=== PATIENT | male | born 1955 | race Caucasian/White ===

== ENCOUNTER → 2017-03-07 | Outpatient (CLI) | payer BC ==
[2016-01-19 11:40] VITALS: BP 139/74
[~2017-03-07] MED LIST: ASPI-630 PO; ATOR20TA PO; ESOM40CA PO; OMEG500C PO
--- NOTE | 2017-03-07 10:21 | RAD ---
MRI Lumbar Spine without contrast History: Low back pain with right leg radiculopathy Technique: Multiplanar, multi sequential noncontrast MR imaging was performed of the lumbar spine. Contrast: None Comparison: None Findings: Lumbar vertebral body stature is overall preserved, small Schmorl's nodes of visualized inferior thoracic levels and also at L1-2. There is mild nonspecific edema associated with small inferior L1 Schmorl's node. There is likely small hemangioma of L4 vertebral body superiorly. AP alignment is overall adequate. Conus terminates normally at the inferior aspect of L1. There is mild degenerative disc disease at L1-L2, L3-4, and L5-S1. There are posterior annular tears at L1-L2, L4-5, and L5-S1. L1-L2: Spinal canal and the neural foramina are adequate. L2-L3: This level was not included on the axial images. Neural foramina and spinal canal are adequate. L3-L4: There is moderate facet hypertrophic change. There is prominence of posterior epidural fat. Neural foramina and spinal canal are adequate. L4-L5: There is moderate facet hypertrophic change greater on right. There is prominence of posterior epidural fat and mild buckling of the ligamentum flavum. Neural foramina and spinal canal are adequate. L5-S1: Spinal canal and neural foramina are adequate. There is mild facet hypertrophic change. Impression: 1. There is no significant lumbar spinal stenosis or neural foramina compromise. There is multilevel mild degenerative disc disease. Electronically signed by: Dominick Hurst MD (03/07/2017 10:17 AM)
--- NOTE | 2017-03-07 12:10 | RAD ---
MR of the right knee HISTORY: Right anteromedial knee pain. Recurring Wahl cysts. History of arthroscopic surgery. FINDINGS: Blunting of the medial meniscus with a small size. Some of these changes may be postoperative but medial meniscal tear is still suspected. There is some hyperintense T2 signal at the undersurface. No evidence of a lateral meniscal tear. The anterior and posterior cruciate ligaments are intact. Mild fluid signal at the ligament compatible with a small ganglion. Posterior cruciate ligament intact. Medial collateral ligament is intact. Iliotibial band unremarkable. Fibular collateral ligament, biceps femoris tendon and popliteus tendon are intact. Extensor mechanism intact. Moderate joint effusion. No evidence of osteochondral loose body. [id number] medial compartment chondromalacia. At least moderate chondromalacia at the medial patella. Small chondral fissure at the medial femoral trochlea, full thickness, measuring approximately 12 mm in vertical by 2 mm wide. No bone lesion or acute fracture. Small Wahl's cyst. Mild subcutaneous edema along the anterior knee. IMPRESSION: 1. Medial meniscal tear. 2. Primary osteoarthritis at the medial and patellofemoral joints. Electronically signed by: Geovanny Fowler MD (03/07/2017 12:06 PM)
== END | disposition home or self-care (01) ==
LOC: MRI 08:41
PROVIDERS: ATTEND Family Medicine
DX: M17.11 Unilateral primary osteoarthritis, right knee (principal); M54.16 Radiculopathy, lumbar region; M51.36 Other intervertebral disc degeneration, lumbar region; M25.461 Effusion, right knee
CPT/HCPCS: 72148; 73721

== ENCOUNTER → 2018-04-28 | Outpatient (CLI) | payer BC | END | disposition home or self-care (01) | LOC: US 12:18 | DX: K46.9 Unspecified abdominal hernia without obstruction or gangrene (principal); E78.5 Hyperlipidemia, unspecified; M17.11 Unilateral primary osteoarthritis, right knee; K21.9 Gastro-esophageal reflux disease without esophagitis | CPT/HCPCS: 76700 ==

== ENCOUNTER → 2018-07-05 | Outpatient (CLI) | payer BC ==
[2016-01-19 11:40] VITALS: BP 139/74
--- NOTE | 2018-07-05 15:00 | RAD ---
Chest, 2 views, 07/05/2018: HISTORY: Shortness of breath The heart size and pulmonary vascularity are normal. There is a small dense nodule projected over the anterior aspect of the right upper lobe. No pulmonary infiltrate is seen. There is no evidence of pleural fluid. IMPRESSION: 1. Probable small right upper lobe granuloma. 2. No acute cardiopulmonary abnormality is detected. Electronically signed by: Jimmy Falcon MD (07/05/2018 2:57 PM) [facility]
== END | disposition home or self-care (01) ==
LOC: RAD 11:50
PROVIDERS: ATTEND Internal Medicine Pulmonary Disease
DX: R06.02 Shortness of breath (principal); R91.8 Other nonspecific abnormal finding of lung field
CPT/HCPCS: 71046

== ENCOUNTER → 2018-07-27 | Outpatient (CLI) | payer BC ==
[2016-01-19 11:40] VITALS: BP 139/74
[~2018-07-27] MED LIST changes: +IOHEXOL 300 MG/ML 100ML VIAL. IV ONE; +IOHEXOL 300 MG/ML 100ML VIAL. ONE
--- NOTE | 2018-07-27 10:32 | RAD ---
CT ANGIOGRAPHY CHEST Indication: DYPSNEA CP RECENT TRAVEL INJ 75ML [id number] PREV SENT . Comparison: Limited images from April 17, 2011, no report available. There is some mild density in the superior segment of the right lower lobe which is unchanged. Small nodule along the left major fissure, measures 4 mm, image 80, unchanged. Technique: After intravenous contrast administration, CT imaging was performed of the chest. MIP reconstructions were obtained. Exposure: One or more of the following individualized dose reduction techniques were utilized for this examination: 1. Automated exposure control 2. Adjustment of the mA and/or kV according to patient size 3. Use of iterative reconstruction technique. FINDINGS: Pulmonary arteries:No evidence of pulmonary embolism. Thoracic aorta: No aneurysm. Thyroid gland:Visualized aspect is unremarkable. Lymph nodes:No significant enlargement Heart: No significant pericadial effusion. Esophagus: Mild wall thickening, greatest distally. Similar to the older study. Pleural spaces: No significant effusion Lungs: Cluster of small nodules in the right upper lobe, one of which is densely calcified. This appears unchanged as well was seen on the limited images from the prior exam. Trachea and central airways: Patent Bones: No destructive process Upper abdomen: Slices through the upper abdomen are limited due to the technique . Mild wall thickening of the gastric body, may just be due to incomplete distention. IMPRESSION: 1. No evidence of pulmonary embolus. 2. Small pulmonary nodules, stable since April 17, 2011. 3. Mild esophageal wall thickening, and possible proximal stomach wall thickening. Appears similar to the previous exam. Electronically signed by: Geovanny Fowler MD (07/27/2018 10:28 AM) [id number]
== END | disposition home or self-care (01) ==
LOC: CT 10:21
PROVIDERS: ATTEND Internal Medicine Critical Care Medicine
DX: K22.8 Other specified diseases of esophagus (principal); R91.8 Other nonspecific abnormal finding of lung field
CPT/HCPCS: 71275; Q9967

== ENCOUNTER → 2019-05-09 | Outpatient (CLI) | payer BC ==
[2016-01-19 11:40] VITALS: BP 139/74
[~2019-05-09] MED LIST changes: +CONTRAST GIVEN. MC PRN; +IOHEXOL 240 MG/ML 50ML VIAL. PO ONE; -IOHEXOL 300 MG/ML 100ML VIAL. ONE
--- NOTE | 2019-05-09 14:21 | RAD ---
LUMBAR SPINE WO CONTRAST Date: 05/09/2019 1:00 PM Indication: Low back pain with right lower extremity radiculopathy Comparison: None. Technique: Multi-planar multi-weighted magnetic resonance imaging of the lumbar spine was performed without intravenous contrast using the standard lumbar spine protocol. FINDINGS: Trace retrolisthesis at L3-4. No acute fracture. Mild multilevel degenerative disc desiccation and disc height loss. No marrow replacing process to suggest malignancy. The conus terminates at a normal level. No abnormal signal is seen within the visualized distal spinal cord. No clumping of intrathecal nerve roots. Please see concurrent CT abdomen and pelvis report for intra-abdominal findings. T12-L1: No disc bulge. No facet arthropathy. No significant spinal stenosis or neural foraminal narrowing. L1-L2: Mild disc bulge with annular tear. Mild facet arthropathy. No significant spinal stenosis or neural foraminal narrowing. L2-L3: Mild disc bulge. Mild facet arthropathy. No significant spinal stenosis or neural foraminal narrowing. L3-L4: Mild disc bulge. Mild facet arthropathy. No significant spinal stenosis or neural foraminal narrowing. L4-L5: Mild disc bulge with annular tear. Moderate facet arthropathy. No significant spinal stenosis or neural foraminal narrowing. L5-S1: Mild disc bulge. Mild facet arthropathy. No significant spinal stenosis or neural foraminal narrowing. IMPRESSION: Lumbar spondylosis. No significant spinal stenosis or neural foraminal narrowing. Electronically signed by: Dominick Whittington MD (05/09/2019 2:18 PM) [id number]
--- NOTE | 2019-05-09 15:44 | RAD ---
CT ABD PELV W/ORAL IV CONTRAST History: Hematuria Comparison: CT chest 07/27/2018 Technique: After administration of intravenous contrast, helical CT of the abdomen and pelvis was performed from the lung bases through the ischial tuberosities. Coronal and sagittal reconstructions were obtained. 75 mL of Omnipaque 300 were used. One or more of the following dose reduction techniques were utilized: Automated exposure control (AEC), Adjustment of mA and/or kV according to patient size, Use of iterative reconstruction technique such as ASiR, CT scan done according to ALARA and image gently/image wisely Abdomen Findings: The visualized lung bases are clear. The liver, gallbladder, pancreas, and spleen are normal. Mild left adrenal hyperplasia. Symmetric renal enhancement. There is no focal renal mass. There is no hydronephrosis. Small hiatal hernia. The visualized loops of small bowel are normal. The visualized loops of large bowel are normal. There is no evidence of bowel obstruction. Appendix is normal. There is no free fluid. There is no mesenteric or retroperitoneal adenopathy. The abdominal aorta is normal in caliber. Mild aortoiliac atherosclerotic disease. Pelvis Findings: Urinary bladder is normal. No pelvic free fluid. There is no pelvic or inguinal adenopathy. Small bilateral fat-containing inguinal hernias. Please see concurrent MR lumbar spine report for evaluation of the lumbar spine. IMPRESSION: No renal mass, calculi, or hydronephrosis. Small hiatal hernia. Electronically signed by: Dominick Whittington MD (05/09/2019 3:41 PM) [id number]
== END | disposition home or self-care (01) ==
LOC: CT 12:01
PROVIDERS: ATTEND Family Medicine
DX: K44.9 Diaphragmatic hernia without obstruction or gangrene (principal); K40.90 Unilateral inguinal hernia, without obstruction or gangrene, not specified as recurrent; E27.8 Other specified disorders of adrenal gland; I70.0 Atherosclerosis of aorta; M51.17 Intervertebral disc disorders with radiculopathy, lumbosacral region; M47.26 Other spondylosis with radiculopathy, lumbar region; M12.88 Other specific arthropathies, not elsewhere classified, other specified site; M51.16 Intervertebral disc disorders with radiculopathy, lumbar region
CPT/HCPCS: 72148; 74177; Q9966; Q9967